=== PATIENT | female | born 1995 | race Caucasian/White ===

== ENCOUNTER 2017-07-03 16:03 | Emergency (ER) | payer MEDICAID ==
--- NOTE | 2017-07-03 16:07 | EDPHY ---
H & P Time Seen by Provider: 07/03/17 16:03 Constitutional: Initial Vital Signs Temperature (C) 36.6 C 07/03/17 16:14 Heart Rate 84 07/03/17 16:14 Respiratory Rate 18 07/03/17 16:14 Blood Pressure 106/89 H 07/03/17 16:14 O2 Sat (%) 100 07/03/17 16:14 O2 Delivery Mode Room Air Allergies/Adverse Reactions: phenobarbital Allergy (Verified 07/03/17 16:23) Home Medications: Medication Instructions Recorded Lamictal 07/03/17 Medical Decision Making - Diagnostics Imaging: Discussed imaging studies w/ spring fitter Radiologist, I viewed and interpreted images myself - Diagnostics Imaging Results: Imaging Impressions Face CT 07/03/17 16:10 Impression: Negative noncontrast CT of the head with no intracranial posttraumatic sequela identified. CT of the Facial Bones (Without Contrast) Clinical Indications: Pain following trauma. Technique: Noncontrast axial images were obtained through the facial bones at 1.25 mm thickness. Sagittal and coronal reformations are performed. Because of the trauma history and for more optimal assessment of facial bones, a three- dimensional reformation was performed and multiple images obtained. Dose reduction techniques were utilized. Findings: A fracture is not identified. The paranasal sinuses are clear. The nasal septum is midline. There is soft tissue swelling adjacent to the left orbit. Impression: Facial bones are negative for fracture. Results called and discussed with Chito Lynch MD on July 03, [address] 07/03/17 16:10 Impression: Negative noncontrast CT of the head with no intracranial posttraumatic sequela identified. CT of the Facial Bones (Without Contrast) Clinical Indications: Pain following trauma. Technique: Noncontrast axial images were obtained through the facial bones at 1.25 mm thickness. Sagittal and coronal reformations are performed. Because of the trauma history and for more optimal assessment of facial bones, a three- dimensional reformation was performed and multiple images obtained. Dose reduction techniques were utilized. Findings: A fracture is not identified. The paranasal sinuses are clear. The nasal septum is midline. There is soft tissue swelling adjacent to the left orbit. Impression: Facial bones are negative for fracture. Results called and discussed with Chito Lynch MD on July 03, 2017 at 1720 hours. Procedures: I was asked by Dr. Chito Lynch to repair facial laceration. Laceration repair. Verbal consent was obtained from the patient. The 2.5 cm irregular laceration on the left cheek was anesthetized using 1% lidocaine with epinephrine. The wound was irrigated with saline, draped and explored to its base with a gloved finger. There were no deep structures involved. The wound was repaired with 6 0 Prolene, 7 sutures. The wound repair was simple. The procedure was performed by myself. 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 She is arriving via EMS in a c-collar as a limited trauma alert after she fell, hit her head, and suffered facial trauma. Her seizures have been controlled with Lamictal for several years. Per her father, he thought the patient was starting to have a seizure when she tripped and hit the left side of her face. After the fall she did not have tonic clonic activity and did not lose consciousness. He does not believe the patient had a seizure. While en route to the emergency department her BGL was 116. No shortness of breath, chest pain, abdominal pain, numbness, paresthesias, or fever. REVIEW OF SYSTEMS: A 10 point review of systems was performed and is negative with the exception of the elements mentioned in the history of present illness. PHYSICAL EXAM: HR, BP, O2 Sat, RR. Temp noted General Appearance: Alert, well hydrated, appropriate, and non-toxic appearing. Head: 1.5 cm linear laceration under left inferior lateral orbit, hematoma lateral to left brow bone, and small abrasion to chin Eyes: Pupils equal, round, reactive to light and accommodation, EOMI, no trauma , no injection. Ears: Clear bilaterally, no perforation, normal landmarks Nose: Atraumatic, no rhinorrhea, clear. Throat: There is no erythema or exudates, no lesions, normal tonsils, mucus membranes moist. Neck: Supple, nontender, no lymphadenopathy. Respiratory: No retractions, no distress, no wheezes, and no accessory muscle use. Lungs are clear to auscultation bilaterally. Cardiovascular: Regular rate and rhythm, no murmurs, rubs, or gallops. Good capillary refill all extremities. Gastrointestinal: Abdomen is soft, nontender, non-distended, no masses, no rebound, no guarding, no peritoneal signs. Musculoskeletal: Normal active ROM of all extremities, atraumatic. Neurological: Alert, appropriate, and interactive. The patient has normal DTRs and non-focal cranial nerves, motor, sensory, and cerebellar exam. Skin: No rashes, good turgor, no nodules on palpation. Past medical history: Intrauterine infarct at 9 months with developmental delay , seizure disorder Past surgical history: Denies Family history: Denies Social history: Father at bedside, single, originally from [place] DIAGNOSTICS/PROCEDURES/CRITICAL CARE TIME: Head CT w/o contrast: Negative Maxillofacial CT w/o contrast: Negative DIFFERENTIAL DIAGNOSIS: The differential diagnosis for the patient's trauma included but was not limited to intracranial injury, long bone and pelvic bone fractures, spinal injury, intra-abdominal injury, and intra-thoracic injury. 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 She is arriving via EMS in a c-collar as a limited trauma alert after she fell and hit her head. It is unsure what her normal mentation baseline is. On exam she has a 1.5 cm linear laceration under her left inferior lateral orbit, hematoma lateral to her left brow bone, and small abrasion to her chin. Due to her developmental delay I have ordered a head and maxillofacial CT scan to rule-out acute intracranial injury. NHAN Tate will suture the facial laceration. 1600: I met EMS upon arrival 1718: Spoke with Dr. Chau, radiologist, regarding this patient's CTs. There are no acute findings. A baseline outpatient MRI should be preformed to establish a baseline at this hospital. 1725: Reassessed patient and discussed imaging findings. I doubt this patient fell from a seizure. I have advised the patient and her father to have an outpatient MRI preformed to establish a baseline. Return precautions provided; patient and her father are comfortable with this plan. (Chito Lynch) Departure - Departure Disposition: Home, Routine, Self-Care Clinical Impression: Hematoma Laceration of face Qualifiers: Encounter type: initial encounter Qualified Code(s): S01.81XA - Laceration without foreign body of other part of head, initial encounter Facial abrasion Qualifiers: Encounter type: initial encounter Qualified Code(s): S00.81XA - Abrasion of other part of head, initial encounter Facial contusion Qualifiers: Encounter type: initial encounter Qualified Code(s): S00.83XA - Contusion of other part of head, initial encounter Fall Qualifiers: Encounter type: initial encounter Qualified Code(s): W19.XXXA - Unspecified fall, initial encounter Condition: Good Instructions: Contusion in Adults (ED), Abrasion (ED), Facial Laceration (ED) Additional Instructions: 1. I recommend having a baseline MRI of the brain and face preformed as an outpatient procedure. 2. Sutures out in 5 days. Return to the Emergency Department for fever, redness , discharge from wound, increasing pain or other worsening of condition. 3. Follow up with your primary care provider in the next 3 days. 4. Return to the Emergency Department for severe headache, vomiting, vision changes, confusion, fever or other concerns. Referrals: [facility],. [Clinic] - As per Instructions Report Scribed for: Chito Lynch Report Scribed by: Patricia Hess Date of Report: 07/03/17 Time of Report: 16:06
[2017-07-03 16:16] VITALS: RESP 18; TEMP 97.9
[2017-07-03 17:52] VITALS: BP 119/68; PULSE 76; O2SAT 98
== END 2017-07-03 17:49 | disposition home or self-care (01) ==
PROC: 0HQ1XZZ Repair Face Skin, External Approach (ICD-10-PCS; principal; 2017-07-03)
DX: S01.412A Laceration without foreign body of left cheek and temporomandibular area, initial encounter (principal); W01.198A Fall on same level from slipping, tripping and stumbling with subsequent striking against other object, initial encounter; Y99.8 Other external cause status; Y93.89 Activity, other specified